=== PATIENT | female | born 1965 | race Two or more races ===

== ENCOUNTER 2016-09-30 11:40 | Emergency (ER) | payer MEDICAID ==
[~2016-09-30] VITALS: Ht 154.9 cm; Wt 59.9 kg
[2016-09-30 11:44] VITALS: BP 133/82
== END 2016-09-30 14:45 | disposition home or self-care (01) ==
LOC: ED 11:40
DX: L02.811 Cutaneous abscess of head [any part, except face] (principal); E78.00 Pure hypercholesterolemia, unspecified; E11.9 Type 2 diabetes mellitus without complications
CPT/HCPCS: J2001; J3490

== ENCOUNTER 2017-02-19 08:00 | Emergency (ER) | payer MEDICAID ==
[2017-02-19 08:40] LABS: BASOPHIL % 0.7 % (0-2); PLATELET COUNT 246 x10^3mcL (130-400); RED CELL DISTRIBUTION WIDTH 13.1 % (11.5-14.5)
[2017-02-19 08:41] LABS: UA SPECIFIC GRAVITY 1.025 (1.005-1.035); microscopic required? YES; urine erythrocyte NEGATIVE (NEGATIVE)
[2017-02-19 08:52] LABS: CALCIUM 8.9 mg/dL (8.5-10.1); CARBON DIOXIDE 26.9 mmol/L (21-32); CHLORIDE SERUM 102 mmol/L (98-107); CREATININE SERUM 0.7 mg/dL (0.6-1.0); GFR1 > 60 mL/min; GLUCOSE SERUM 215 mg/dL (74-106); SODIUM SERUM 138 mmol/L (136-145)
[2017-02-19 08:57] LABS: ALBUMIN 3.5 g/dL (3.4-5.0); ALKALINE PHOSPHATASE 81 U/L (46-116); ALT/SGPT 33 U/L (14-59); AMYLASE 89 U/L (25-115); AST/SGOT 19 U/L (15-37); BILIRUBIN TOTAL 0.43 mg/dL (0.20-1.00); LIPASE 125 IU/L (73-393); TOTAL PROTEIN, SERUM 7.7 g/dL (6.4-8.2)
[2017-02-19 13:44] VITALS: BP 125/89
== END 2017-02-19 13:44 | disposition home or self-care (01) ==
LOC: ED 08:00
PROVIDERS: Specialist
DX: N39.0 Urinary tract infection, site not specified (principal); E11.9 Type 2 diabetes mellitus without complications; E78.00 Pure hypercholesterolemia, unspecified; Z79.4 Long term (current) use of insulin; Z79.84 Long term (current) use of oral hypoglycemic drugs
CPT/HCPCS: 83880; J0696; J1885; J2405; J3010; J7030

== ENCOUNTER 2017-06-05 13:31 | Emergency (ER) | payer MEDICAID ==
[~2017-06-05] VITALS: Ht 154.9 cm; Wt 62.6 kg
[2017-06-05 13:35] VITALS: Ht 154.9 cm; Wt 62.6 kg
[2017-06-05 14:19] LABS: BASOPHIL % 0.6 % (0-2); PLATELET COUNT 261 x10^3mcL (130-400); RED CELL DISTRIBUTION WIDTH 12.6 % (11.5-14.5)
[2017-06-05 14:40] LABS: CALCIUM 8.7 mg/dL (8.5-10.1); CARBON DIOXIDE 27.2 mmol/L (21-32); CHLORIDE SERUM 100 mmol/L (98-107); CREATININE SERUM 0.8 mg/dL (0.6-1.0); GFR1 > 60 mL/min; GLUCOSE SERUM 321 mg/dL (74-106); POTASSIUM SERUM 3.5 mmol/L (3.5-5.1); SODIUM SERUM 137 mmol/L (136-145)
[2017-06-05 14:45] LABS: ALBUMIN 3.7 g/dL (3.4-5.0); ALKALINE PHOSPHATASE 76 U/L (46-116); ALT/SGPT 32 U/L (14-59); AST/SGOT 33 U/L (15-37); BILIRUBIN TOTAL 0.42 mg/dL (0.20-1.00); LIPASE 126 IU/L (73-393); TOTAL PROTEIN, SERUM 7.5 g/dL (6.4-8.2)
[2017-06-05 16:18] VITALS: BP 121/77
== END 2017-06-05 16:48 | disposition home or self-care (01) ==
LOC: ED 13:31
PROVIDERS: Emergency Medicine
DX: R10.11 Right upper quadrant pain (principal); R11.2 Nausea with vomiting, unspecified; E11.9 Type 2 diabetes mellitus without complications; E78.00 Pure hypercholesterolemia, unspecified
CPT/HCPCS: J2405; J3010; J7030; Q0092

== ENCOUNTER 2018-03-15 09:07 | Emergency (ER) | payer MEDICAID ==
[~2018-03-15] VITALS: Ht 154.9 cm; Wt 63.0 kg
[2018-03-15 09:19] VITALS: BP 143/66; Ht 154.9 cm; Wt 63.0 kg
== END 2018-03-15 11:38 | disposition home or self-care (01) ==
LOC: ED 09:07
DX: M79.651 Pain in right thigh (principal); M79.604 Pain in right leg; E11.9 Type 2 diabetes mellitus without complications; E78.00 Pure hypercholesterolemia, unspecified
CPT/HCPCS: 82962; J1885